=== PATIENT | female | born 1990 | race Two or more races ===

== ENCOUNTER 2022-07-01 17:18 | Inpatient (IN) | payer OTHER ==
[~2022-07-01] VITALS: Ht 157.5 cm; Wt 65.8 kg
[2022-07-01] MEDS ORDERED: PEPCID AC20 MG PO (17:56)
[2022-07-01] MEDS ORDERED: PRENATAL TABLE1 EAC1 PO (17:56)
== END 2022-07-02 09:26 | disposition home or self-care (01) | DRG 833 ==
LOC: LDR 17:18
PROVIDERS: ADMIT Obstetrics & Gynecology; ATTEND Obstetrics & Gynecology
PROC: 4A1HXCZ Monitoring of Products of Conception, Cardiac Rate, External Approach (ICD-10-PCS; principal; 2022-07-01)
PROC: BU4CZZZ Ultrasonography of Uterus and Ovaries (ICD-10-PCS; 2022-07-01)
PROC: BY4FZZZ Ultrasonography of Third Trimester, Single Fetus (ICD-10-PCS; 2022-07-01)
DX: O47.03 False labor before 37 completed weeks of gestation, third trimester (principal); Z3A.28 28 weeks gestation of pregnancy; Z20.822 Contact with and (suspected) exposure to COVID-19

== ENCOUNTER 2022-08-31 13:15 | Inpatient (IN) | payer OTHER ==
[~2022-08-31] VITALS: Ht 157.5 cm; Wt 68.0 kg
[~2022-08-31 13:15] MED LIST: PEPCID AC20 MG PO; PRENATAL TABLE1 EAC1 PO
== END 2022-09-18 12:38 | disposition home or self-care (01) | DRG 768 ==
LOC: OB/GYN 09-09 13:15 → LDR 09-16 06:16 → OB/GYN 09-16 20:21
PROVIDERS: ADMIT Obstetrics & Gynecology Maternal & Fetal Medicine; ATTEND Obstetrics & Gynecology Maternal & Fetal Medicine
PROC: 10E0XZZ Delivery of Products of Conception, External Approach (ICD-10-PCS; principal; 2022-09-16)
PROC: 0DQR0ZZ Repair Anal Sphincter, Open Approach (ICD-10-PCS; 2022-09-16)
PROC: 0W8NXZZ Division of Female Perineum, External Approach (ICD-10-PCS; 2022-09-16)
PROC: 4A1HXCZ Monitoring of Products of Conception, Cardiac Rate, External Approach (ICD-10-PCS; 2022-09-16)
DX: O70.21 Third degree perineal laceration during delivery, IIIa (principal); Z37.0 Single live birth; O99.824 Streptococcus B carrier state complicating childbirth; Z3A.40 40 weeks gestation of pregnancy; Z20.822 Contact with and (suspected) exposure to COVID-19

== ENCOUNTER → 2022-09-08 | Outpatient (CLI) | payer OTHER | END | disposition home or self-care (01) | LOC: NST 14:08 | PROVIDERS: ATTEND Obstetrics & Gynecology Maternal & Fetal Medicine | DX: Z34.83 Encounter for supervision of other normal pregnancy, third trimester (principal) ==

== ENCOUNTER 2024-10-18 04:40 | Emergency (ER) | payer OTHER ==
[~2024-10-18] VITALS: Ht 157.5 cm; Wt 60.8 kg
[2024-10-18] MEDS ORDERED: METOCLOPRAMIDE HCL 5 MG/ML VIAL IM STA (04:59)
[2024-10-18] MEDS ORDERED: PROMETHAZINE HCL 50 MG/ML AMPUL IM STA (04:59)
[2024-10-18] MEDS ORDERED: FAMOtidine 10 MG/ML (4ML VIAL) IV PUSH STA (05:01)
[2024-10-18] MEDS ORDERED: RINGERS SOLUTION,LACTATED 1,000 ML IV STA (05:01)
[2024-10-18] MEDS ORDERED: METOCLOPRAMIDE HCL 5 MG/ML VIAL ONE (05:20)
[2024-10-18] MEDS ORDERED: FAMOTIDINE/PF 20 MG/2 ML VIAL ONE (05:20)
[2024-10-18] MEDS ORDERED: PROMETHAZINE HCL 50 MG/ML AMPUL IM ONE (05:20)
[2024-10-18 05:41] LABS: HEMATOCRIT 34.8 % (36.0-45.00); HEMOGLOBIN 12.1 g/dL (12.0-15.00); MEAN CELL VOLUME 91.6 fL (80.00-100.00); MEAN CORPUSCULAR HEMOGLOBIN 31.9 pg (27.00-32.0); MEAN CORPUSCULAR HGB CONC 34.8 g/dl (32.0-36.0); PLATELET COUNT 250 K/uL (150-450); RED BLOOD COUNT 3.79 M/uL (4.00-6.00); RED CELL DISTRIBUTION WIDTH 13.8 % (11.5-14.5)
[2024-10-18 06:30] LABS: CALCIUM 8.6 mg/dL (8.5-10.1); CREATININE SERUM 0.65 mg/dL (0.55-1.02); GFR 103.13; POTASSIUM 3.77 mEq/L (3.5-5.1)
== END 2024-10-18 07:19 | disposition home or self-care (01) ==
LOC: ER 04:41
DX: O21.8 Other vomiting complicating pregnancy (principal); K29.70 Gastritis, unspecified, without bleeding; Z3A.24 24 weeks gestation of pregnancy

== ENCOUNTER 2025-01-24 13:45 | Inpatient (IN) | payer OTHER ==
[~2025-01-24] VITALS: Ht 157.5 cm; Wt 65.3 kg
[2025-01-25] VITALS (9 sets, daily range): BP systolic 95–123; BP diastolic 65–91
[2025-01-25] MEDS ORDERED: AMPICILLIN SODIUM 2,000 MG VIAL ONE (02:06)
[2025-01-25] MEDS ORDERED: AMPICILLIN SODIUM 2,000 MG VIAL IV ONE (02:30)
[2025-01-25] MEDS ORDERED: RINGERS SOLUTION,LACTATED 1,000 ML IV SCH (02:30)
[2025-01-25] MEDS ORDERED: PRENATAL + DHA1 EAC1 PO (03:09)
[2025-01-25 03:13] LABS: BASO % 0.9 % (0.1-1.2); EOS # 0.16 (0.04-0.54); EOS % 2.1 % (0.7-7.0); LYMPH # 2.37 (1.18-3.74); LYMPH % 30.6 % (19.3-53.1); MEAN PLATELET VOLUME 11.80 fl (9.4-12.4); MONO # 0.91 (0.24-0.82); MONO % 11.8 % (4.7-12.5); NEUT # 4.14 (1.56-6.13); NEUT % 53.4 % (34.0-71.1); RED CELL DISTRIBUTION WIDTH 15.6 % (11.6-14.4)
[2025-01-25 03:57] LABS: INR 0.94
[2025-01-25] MEDS ORDERED: AMPICILLIN SODIUM 1,000 MG VIAL IV SCH (04:00)
[2025-01-25 04:03] LABS: ALT/SGPT 13.0 U/L (12-78); AST/SGOT 15.0 U/L (15-37); BILIRUBIN TOTAL 0.42 mg/dL (0.3-1.2); BUN CREA RATIO 14.0 (7.0-25.0); CREATININE SERUM 0.66 mg/dL (0.55-1.02); GFR 100.77; GLOBULINA 3.6 G/DL (2.4-3.5); GLUCOSE FASTING 89.0 mg/dL (65-100); OSMOLALITY SERUM 281.0 MOSM/KG (275-295)
[2025-01-25] MEDS ORDERED: AMPICILLIN SODIUM 1,000 MG VIAL ONE (06:08)
[2025-01-25] MEDS ORDERED: OXYTOCIN 20 UNITS/500ML RL PIGGYBAG IV ONE (08:01)
[2025-01-25] MEDS ORDERED: OXYTOCIN 20 UNITS/500ML RL PIGGYBAG IV SCH ×2 (08:15→09:30)
[2025-01-25] MEDS ORDERED: MORPHINE SULFATE 4 MG/ML VIAL IV STA (13:15)
[2025-01-25] MEDS ORDERED: ERYTHROMYCIN BASE OPHT 1GM EACH TUBE OP ONE ×3 (13:34→15:45)
[2025-01-25] MEDS ORDERED: CHLORHEXIDINE GLUCONATE 120 ML BOTTLE TOP ONE (13:34)
[2025-01-25] MEDS ORDERED: OXYTOCIN 20 UNITS/1000ML RL PIGGYBAG IV ONE (13:34)
[2025-01-25] MEDS ORDERED: LIDOCAINE HCL 1% 10ML VIAL ONE ×2 (13:35→14:18)
[2025-01-25] MEDS ORDERED: OXYTOCIN 1,000 ML IV SCH (15:15)
[2025-01-25] MEDS ORDERED: CHLORHEXIDINE GLUCONATE 120 ML BOTTLE TOP SCH (15:15)
[2025-01-25] MEDS ORDERED: LIDOCAINE HCL 1% 10ML VIAL IJ ONE (15:45)
[2025-01-25] MEDS ORDERED: OxyCODONE HCL 5 MG TABLET (ROXICODONE) PO SCH (16:00)
[2025-01-25] MEDS ORDERED: DOCUSATE SODIUM 100MG CAP PO SCH (17:00)
[2025-01-25] MEDS ORDERED: KETOROLAC TROMETHAMINE 10 MG TABLET PO SCH (18:00)
[2025-01-26 00:44] VITALS: BP 101/63
[2025-01-26 04:00] VITALS: BP 105/69
[2025-01-26 07:56] VITALS: BP 114/77
[2025-01-26] MEDS ORDERED: PNV,CALCIUM 72/IRON/FOLIC ACID 1 TAB TABLET PO SCH (09:00)
[2025-01-26 09:47] LABS: BASO % 0.5 % (0.1-1.2); EOS # 0.13 (0.04-0.54); EOS % 1.1 % (0.7-7.0); LYMPH # 2.36 (1.18-3.74); LYMPH % 20.5 % (19.3-53.1); MEAN PLATELET VOLUME 10.70 fl (9.4-12.4); MONO # 0.64 (0.24-0.82); MONO % 5.6 % (4.7-12.5); NEUT # 8.17 (1.56-6.13); NEUT % 71.2 % (34.0-71.1); RED CELL DISTRIBUTION WIDTH 15.2 % (11.6-14.4)
[2025-01-26 15:57] VITALS: BP 108/74
[2025-01-26 20:00] VITALS: BP 101/67
[2025-01-27 00:53] VITALS: BP 108/71
[2025-01-27 09:11] VITALS: BP 111/74
[2025-01-27 11:10] VITALS: BP 118/75
== END 2025-01-27 11:20 | disposition home or self-care (01) | DRG 807 ==
LOC: LDR 01-25 02:00 → OB/GYN 01-25 02:00 → LDR 02-05 13:45
PROVIDERS: ADMIT Obstetrics & Gynecology Maternal & Fetal Medicine; ATTEND Obstetrics & Gynecology Maternal & Fetal Medicine
PROC: 10E0XZZ Delivery of Products of Conception, External Approach (ICD-10-PCS; principal; 2025-01-25)
PROC: 0KQM0ZZ Repair Perineum Muscle, Open Approach (ICD-10-PCS; 2025-01-25)
PROC: 0W8NXZZ Division of Female Perineum, External Approach (ICD-10-PCS; 2025-01-25)
PROC: 4A1HXCZ Monitoring of Products of Conception, Cardiac Rate, External Approach (ICD-10-PCS; 2025-01-25)
PROC: 0HB8XZZ Excision of Buttock Skin, External Approach (ICD-10-PCS; 2025-01-25)
DX: O70.1 Second degree perineal laceration during delivery (principal); Z37.0 Single live birth; O99.824 Streptococcus B carrier state complicating childbirth; O99.72 Diseases of the skin and subcutaneous tissue complicating childbirth; L91.8 Other hypertrophic disorders of the skin; Z3A.38 38 weeks gestation of pregnancy